=== PATIENT | male | born 1990 | race American Indian/Alaskan Native ===

== ENCOUNTER 2018-08-13 16:05 | Emergency (ER) | payer MEDICAID ==
[2018-08-13 16:13] VITALS: O2SAT 100
[2018-08-13] MEDS ORDERED: Sodium Chloride 0.9% 1,000 ML IV ONE (16:19)
[2018-08-13] MEDS ORDERED: Sodium Chloride 0.9% 0 ML ONE (16:30)
[2018-08-13 16:40] LABS: BASO # 0.1 K/uL (0.0-0.2); EOS # 0.2 K/uL (0.0-0.7); EOS % 2.2 % (0.0-4.0); LYMPH # 2.4 K/uL (1.0-4.3); LYMPH % 27.5 % (20.0-40.0); MEAN CELL VOLUME 73.8 fL (80.0-94.0); MEAN CORPUSCULAR HEMOGLOBIN 22.8 pg (27.0-31.0); MEAN CORPUSCULAR HGB CONC 30.9 g/dL (33.0-37.0); MEAN PLATELET VOLUME 9.6 fL (7.2-11.7); MONO # 0.8 K/uL (0.0-0.8); MONO % 9.6 % (0.0-10.0); NEUT # 5.2 K/uL (1.8-7.0); NEUT % 59.7 % (50.0-75.0); NRBC % 0.1 % (0.0-2.0); RBC 5.27 Mil/uL (4.40-5.90); RED CELL DISTRIBUTION WIDTH 14.1 % (11.5-14.5); WHITE BLOOD COUNT 8.6 K/uL (4.8-10.8)
[2018-08-13 16:54] LABS: ALB/GLOB RATIO 1.3 (1.0-2.1); ALBUMIN 4.3 g/dL (3.5-5.0); ALT/SGPT 29 U/L (21-72); AST/SGOT 14 U/L (17-59); BLOOD UREA NITROGEN 15 mg/dL (9-20); CALCIUM 9.7 mg/dl (8.6-10.4); GFR NON-AFRICAN AMERICAN > 60; LIPASE 173 U/L (23-300)
--- NOTE | 2018-08-13 17:00 | C.PDOC ---
History Of Present Illness 27 y/o male pt presents to the ED with c/o nausea yesterday. Pt denies vomiting, fever, chills, diarrhea and abdominal pain. Pt is eating well and asked for a work note. Time Seen by Provider: 08/13/18 16:14 Chief Complaint (Nursing): Abdominal Pain History Per: Patient History/Exam Limitations: no limitations Onset/Duration Of Symptoms: Days (x1) Current Symptoms Are (Timing): Still Present Past Medical History Reviewed: Historical Data, Nursing Documentation, Vital Signs Vital Signs: Last Vital Signs Temp 98.7 F 08/13/18 16:11 Pulse 85 08/13/18 16:11 Resp 20 08/13/18 16:11 BP 100/60 08/13/18 16:11 Pulse Ox 100 08/13/18 16:11 - Medical History PMH: Asthma Family History: States: No Known Family Hx - Social History Hx Alcohol Use: No Hx Substance Use: No Review Of Systems Except As Marked, All Systems Reviewed And Found Negative. Constitutional: Negative for: Fever, Chills Gastrointestinal: Positive for: Nausea. Negative for: Vomiting Physical Exam - Physical Exam Appears: Well, Non-toxic, No Acute Distress Skin: Normal Color, Warm, Dry Head: Normacephalic Eye(s): bilateral: Normal Inspection, EOMI Nose: Normal Oral Mucosa: Moist Throat: Normal Neck: Normal ROM, Supple Cardiovascular: Rhythm Regular Respiratory: Normal Breath Sounds Gastrointestinal/Abdominal: Soft, No Tenderness Extremity: Normal ROM (x4) Neurological/Psych: Oriented x3, Normal Speech ED Course And Treatment - Laboratory Results Result Diagrams: 08/13/18 16:38 08/13/18 16:38 O2 Sat by Pulse Oximetry: 100 (RA) Pulse Ox Interpretation: Normal Medical Decision Making Medical Decision Making: Impression: nausea yesterday plans: -- chem labs -- blood work -- pepcid -- IV fluids -- zofran injection Disposition - Disposition Referrals: Antonia Mi, [Non-Staff] - Disposition: HOME/ ROUTINE Disposition Time: 17:00 Condition: GOOD Additional Instructions: JASVIR ROSSI, thank you for letting us take care of you today. Your provider was Maico Wilks DO and you were treated for ABD PAIN/NAUSEA. The emergency medical care you received today was directed at your acute symptoms. If you were prescribed any medication, please fill it and take as directed. It may take several days for your symptoms to resolve. Return to the Emergency Department if your symptoms worsen, do not improve, or if you have any other problems. Please contact your doctor or call one of the physicians/clinics you have been referred to that are listed on the Patient Visit Information form that is included in your discharge packet. Bring any paperwork you were given at discharge with you along with any medications you are taking to your follow up visit. Our treatment cannot replace ongoing medical care by a primary care provider outside of the emergency department. Thank you for allowing the [facility] team to be part of your care today. Follow up with your primary care doctor if you have any concerns. Instructions: Nausea and Vomiting, Adult (DC) Forms: [employer] (Hebrew), Work Excuse - Clinical Impression Clinical Impression: Nausea - Scribe Statement The provider has reviewed the documentation as recorded by the Scribe Ryan Do Provider Attestation: All medical record entries made by the Scribe were at my direction and personally dictated by me. I have reviewed the chart and agree that the record accurately reflects my personal performance of the history, physical exam, medical decision making, and the department course for this patient. I have also personally directed, reviewed, and agree with the discharge instructions and disposition.
[2018-08-13 17:40] VITALS: BP 107/68; PULSE 88; RESP 18; TEMP 98.2
== END 2018-08-13 17:39 | disposition home or self-care (01) ==
LOC: C.ER 16:05
DX: R11.0 Nausea (principal)